=== PATIENT | female | born 1975 | race Hispanic/Latino ===

== ENCOUNTER 2019-06-12 20:06 | Emergency (ER) | payer MEDICARE ==
[2019-06-12] MEDS ORDERED: predniSONE 20 MG TAB PO ONE (20:51)
[2019-06-12] MEDS ORDERED: IPRATROPIUM 0.02% NEBU 2.5 ML IH ONE (20:51)
[2019-06-12] MEDS ORDERED: ALBUTEROL 2.5 MG/3 ML NEBU IH ONE (20:51)
--- NOTE | 2019-06-12 20:51 | Emergency Department Report ---
Blank Doc - Documentation Documentation: 43-year-old female that presents with SOB, wheezing, and cough. HX of asthma. Exam: wheezing to bilateral lungs This initial assessment/diagnostic orders/clinical plan/treatment(s) is/are subject to change based on patient's health status, clinical progression and re-assessment by fellow clinical providers in the ED. Further treatment and workup at subsequent clinical providers discretion. Patient/guardians urged not to elope from the ED as their condition may be serious if not clinically assessed and managed. Initial orders include: 1- Patient sent to [facility] for further evaluation and treatment 2- xrays 3- breathing treatment/steroids
--- NOTE | 2019-06-12 21:20 | XRay Report ---
CHEST 2 VIEWS INDICATION: MAIN: wheezing/cough/sob; difficulty breathing w/dry cough; onset last night, unk fever; HX OF BRONCH ITIS AND PNEUMONIA. COMPARISON: None FINDINGS: Support devices: None. Heart: Within normal limits. Lungs/pleura: Minimal streaky left basilar airspace disease with otherwise clear lungs. No pneumotho rax. Additional findings: None. IMPRESSION: 1. Pulmonary findings as above. Signer Name: Vasyl Dolan MD Signed: 06/12/2019 9:15 PM Workstation Name: [id number]
[2019-06-12] MEDS ORDERED: SODIUM CHLORIDE 0.9% 1000 ML 1,000 ML IV ONE (22:50)
[2019-06-12] MEDS ORDERED: HYDROcodone/ACETAMINOPHEN 5-325 MG TAB PO ONE (23:40)
--- NOTE | 2019-06-12 23:55 | Emergency Department Report ---
HPI - General Chief Complaint: Dyspnea/Respdistress Time Seen by Provider: 06/12/19 20:50 - HPI HPI: Room 26 The patient is a 43-year-old female present with a chief complaint of chest congestion cough and shortness of breath. Patient states last night she developed chest congestion and tightness consistent with her asthma. Patient states she developed cough that is been nonproductive. Patient states today she developed wheezing consistent with her asthma. Patient states she was taking her albuterol all day but it has not helped. Patient was traveling from [place] to [place] and came to the hospital after remaining symptomatic at their hotel. Patient also complains of a headache when she coughs ED Past Medical Hx - Past Medical History Previous Medical History?: Yes Hx Hypertension: Yes Hx Asthma: Yes Additional medical history: hypotension. tachycardia/bradycardia - Surgical History Past Surgical History?: Yes Additional Surgical History: R shoulder sx x2. abd sx. 5 knee surgeries, gastric perforation - Family History Family history: no significant - Social History Smoking Status: Former Smoker (None since 2004) Substance Use Type: None (Denies illicit drug use) - Medications Home Medications: Home Medications Medication Instructions Recorded Confirmed Last Taken Type Albuterol INH(or & Nicu Only) 2 puff IH QID PRN #8.5 gram 06/13/19 Unknown Rx [ProAir HFA Inhaler] Benzonatate [Tessalon Perles] 100 mg PO Q8HR #30 capsule 06/13/19 Unknown Rx Butalb/Acetamin/Caff 50-325-40 1 - 2 tab PO Q8HR PRN #10 tablet 06/13/19 Unknown Rx [Fioricet 50-325-40] Prednisone [predniSONE 10 mg 10 mg PO .TAPER #1 tab.ds.pk 06/13/19 Unknown Rx (6-Day Pack, 21 Tabs)] levoFLOXacin [Levaquin TAB] 500 mg PO QDAY #10 tablet 06/13/19 Unknown Rx traMADoL [Ultram] 50 mg PO Q6HR PRN #10 tablet 06/13/19 Unknown Rx ED Review of Systems ROS: Stated complaint: DIFF BREATHING Other details as noted in HPI Constitutional: denies: fever Eyes: denies: eye pain ENT: denies: throat pain Respiratory: cough, shortness of breath, wheezing Cardiovascular: chest pain (With cough) Endocrine: no symptoms reported Gastrointestinal: denies: abdominal pain Genitourinary: denies: dysuria Musculoskeletal: denies: back pain Neurological: headache Physical Exam - Physical Exam Vital Signs: Vital Signs 06/12/19 06/12/19 20:10 21:15 Temperature 97.5 F L Pulse Rate 145 H Pulse Rate [ 140 H Bilateral] Respiratory 20 Rate Respiratory 18 Rate [Bilateral ] Blood Pressure 143/84 O2 Sat by Pulse 96 Oximetry Physical Exam: GENERAL: The patient is well-developed well-nourished female lying on stretcher not appear to be in acute distress. [] HEENT: Normocephalic. Atraumatic. Extraocular motions are intact. Patient has moist mucous membranes. NECK: Supple. Trachea midline CHEST/LUNGS: Clear to auscultation. There is no respiratory distress noted. HEART/CARDIOVASCULAR: Regular. There is tachycardia. There is no gallop rub or murmur. ABDOMEN: Abdomen is soft, nontender. Patient has normal bowel sounds. There is no abdominal distention. SKIN: There is no rash. There is no diaphoresis. NEURO: The patient is awake, alert, and oriented. The patient is cooperative. The patient has normal speech MUSCULOSKELETAL: There is no evidence of acute injury. ED Course Vital Signs 06/12/19 06/12/19 20:10 21:15 Temperature 97.5 F L Pulse Rate 145 H Pulse Rate [ 140 H Bilateral] Respiratory 20 Rate Respiratory 18 Rate [Bilateral ] Blood Pressure 143/84 O2 Sat by Pulse 96 Oximetry ED Medical Decision Making - Lab Data Result diagrams: 06/12/19 23:20 06/12/19 23:20 Laboratory Tests 06/12/19 06/12/19 06/12/19 23:20 23:20 23:20 WBC 7.8 RBC 4.57 Hgb 11.5 Hct 35.2 MCV 77 L MCH 25 L MCHC 33 RDW 18.3 H Plt Count 155 Lymph % (Auto) 3.5 L Sabine % (Auto) 6.5 Eos % (Auto) 0.3 Baso % (Auto) 0.5 Lymph # 0.3 L Sabine # 0.5 Eos # 0.0 Baso # 0.0 Seg Neutrophils % 89.2 H Seg Neutrophils # 7.0 PT 13.5 INR 1.02 APTT 23.9 L Sodium 142 Potassium 4.3 Chloride 102.6 Carbon Dioxide 21 L Anion Gap 23 BUN 9 Creatinine 0.7 Estimated GFR > 60 BUN/Creatinine Ratio 13 Glucose 145 H Calcium 8.8 Total Bilirubin < 0.20 AST 11 ALT 12 Alkaline Phosphatase 71 Troponin T < 0.010 Total Protein 6.3 Albumin 3.9 Albumin/Globulin Ratio 1.6 TSH Free T4 06/12/19 06/12/19 23:20 23:42 WBC RBC Hgb Hct MCV MCH MCHC RDW Plt Count Lymph % (Auto) Sabine % (Auto) Eos % (Auto) Baso % (Auto) Lymph # Sabine # Eos # Baso # Seg Neutrophils % Seg Neutrophils # PT INR APTT Sodium Potassium Chloride Carbon Dioxide Anion Gap BUN Creatinine Estimated GFR BUN/Creatinine Ratio Glucose Calcium Total Bilirubin AST ALT Alkaline Phosphatase Troponin T < 0.010 Total Protein Albumin Albumin/Globulin Ratio TSH 1.510 Free T4 0.86 - EKG Data -: EKG Interpreted by Me EKG shows normal: sinus rhythm Rate: tachycardia (145 bpm) - EKG Data When compared to previous EKG there are: previous EKG unavailable Interpretation: other (No ischemic changes seen) - Radiology Data Radiology results: report reviewed (Chest x-ray), image reviewed (Chest x-ray) interpreted by me: Chest x-ray-no definite focal infiltrates, no pneumothorax [facility] [address] [place] [address] XRay Report Signed Patient: FRACISCO CLARK MR#: [id number] : 1975 Acct:[id number] Age/Sex: 43 / F ADM Date: 06/12/19 Loc: ED Attending Dr: Ordering Physician: BEV NAILS NP Date of Service: 06/12/19 Procedure(s): XR chest routine 2V Accession Number(s): [id number] cc: BEV NAILS NP Fluoro Time In Minutes: CHEST 2 VIEWS INDICATION: MAIN: wheezing/cough/sob; difficulty breathing w/dry cough; onset last night, unk fever; HX OF BRONCHITIS AND PNEUMONIA. COMPARISON: None FINDINGS: Support devices: None. Heart: Within judie l limits. Lungs/pleura: Minimal streaky left basilar airspace disease with otherwise clear lungs. No pneumothorax. Additional findings: None. IMPRESSION: 1. Pulmonary findings as above. Signer Name: Vasyl Dolan MD Signed: 06/12/2019 9:15 PM Workstation Name: [id number] Transcribed By: FELIPA Dictated By: Vasyl Dolan MD Electronically Authenticated By: Vasyl Dolan MD Signed Date/Time: 06/12/192114 DD/ 14 TD/TT: - Medical Decision Making Patient has received multiple beta agonist including her own throughout the day in addition to having a history of idiopathic tachycardia. Heart rate has improved 20 points with IV fluids - Differential Diagnosis Asthma exacerbation, pneumonia, bronchitis Critical care attestation.: If time is entered above; I have spent that time in minutes in the direct care of this critically ill patient, excluding procedure time. ED Disposition Clinical Impression: Acute asthma exacerbation, Acute bronchitis Disposition: TO HOME OR SELFCARE Is pt being admited?: No Does the pt Need Aspirin: No Condition: Stable Instructions: Acute Bronchitis (ED) Additional Instructions: Return to the emergency department should you develop worsening symptoms, inability to tolerate food or liquids, high fever or any other concerns Prescriptions: Butalb/Acetamin/Caff 50-325-40 [Fioricet 50-325-40] 1 - 2 tab PO Q8HR PRN #10 tablet PRN Reason: Headache levoFLOXacin [Levaquin TAB] 500 mg PO QDAY #10 tablet Prednisone [predniSONE 10 mg (6-Day Pack, 21 Tabs)] 10 mg PO .TAPER #1 tab.ds.pk Albuterol INH(or & Nicu Only) [ProAir HFA Inhaler] 2 puff IH QID PRN #8.5 gram PRN Reason: Shortness Of Breath Benzonatate [Tessalon Perles] 100 mg PO Q8HR #30 capsule traMADoL [Ultram] 50 mg PO Q6HR PRN #10 tablet PRN Reason: Pain Referrals: PRIMARY CARE, [Primary Care Provider] - 3-5 Days Time of Disposition: 01:36
[2019-06-12 23:58] LABS: Basophils % (Auto) 0.5 % (0.0-1.8); Eosinophils % (Auto) 0.3 % (0.0-4.3); Hematocrit 35.2 % (30.3-42.9); Hemoglobin 11.5 gm/dl (10.1-14.3); Lymphocytes # (Auto) 0.3 K/mm3 (1.2-5.4); Lymphocytes % (Auto) 3.5 % (13.4-35.0); Mean Corpuscular HGB Conc 33 % (30-34); Mean Corpuscular Volume 77 fl (79-97); Monocytes # (Auto) 0.5 K/mm3 (0.0-0.8); Monocytes % (Auto) 6.5 % (0.0-7.3); Platelet Count 155 K/mm3 (140-440); Red Blood Count 4.57 M/mm3 (3.65-5.03); Red Cell Distribution Width 18.3 % (13.2-15.2)
[2019-06-13 00:07] LABS: INR 1.02 (0.87-1.13)
[2019-06-13 00:08] LABS: Partial Thromboplastin Time 23.9 Sec. (24.2-36.6)
[2019-06-13 00:25] LABS: Alanine Aminotransferase 12 units/L (7-56); Albumin 3.9 g/dL (3.9-5); BUN/Creatinine Ratio 13; Blood Urea Nitrogen 9 mg/dL (7-17); Calcium 8.8 mg/dL (8.4-10.2); Hemolysis Index 8
[2019-06-13 00:30] LABS: Free T4 (Free Thyroxine) 0.86 ng/dL (0.76-1.46)
[2019-06-13 02:40] VITALS: BP 118/63
[2019-06-13] MEDS ORDERED: IPRATROPIUM/ALBUTEROL SULFATE 3 ML AMPUL.NEB IH SCH (08:00)
== END 2019-06-13 02:15 | disposition home or self-care (01) ==
LOC: ED 20:06
DX: J20.9 Acute bronchitis, unspecified (principal); J45.901 Unspecified asthma with (acute) exacerbation
CPT/HCPCS: 36415; 71046; 80053; 84439; 84443; 84484; 85025; 85610; 85730; 93005; 93010; 94644; 99284; J7030; J7512